=== PATIENT | male | born 1955 | race Caucasian/White ===

== ENCOUNTER 2017-08-17 15:17 | Emergency (ER) | payer MEDICARE, MEDICAID ==
[~2017-08-17] VITALS: Ht 167.6 cm; Wt 75.0 kg
[~2017-08-17 15:17] MED LIST: AMIO200T57 PO; ASPI-41 PO; HYDR-3972 PO; METO25TA6 PO; PHEN32.417 PO; TEG100T PO; ZOC40T PO
[2017-08-17] MEDS ORDERED: HYDR-3965 PO (15:48)
[2017-08-17] MEDS ORDERED: SULF1TAB49 PO (15:48)
[2017-08-17 15:49] VITALS: BP 123/81
== END 2017-08-17 15:54 | disposition home or self-care (01) ==
LOC: ER 15:19
DX: L03.311 Cellulitis of abdominal wall (principal); I10 Essential (primary) hypertension; E78.00 Pure hypercholesterolemia, unspecified; Z79.82 Long term (current) use of aspirin
CPT/HCPCS: 99283

== ENCOUNTER 2020-03-05 08:12 | Emergency (ER) | payer MEDICARE, MEDICAID ==
[~2020-03-05] VITALS: Ht 167.6 cm; Wt 79.5 kg
[~2020-03-05 08:12] MED LIST changes: -AMIO200T57 PO; +AMIO200T61 PO
[2020-03-05 08:13] VITALS: BP 166/86
[2020-03-05] MEDS ORDERED: HYDROcodone/acetaminophen 5mg/325mg tablet PO ONE (09:05)
[2020-03-05] MEDS ORDERED: TRAM50TA2 PO (09:39)
== END 2020-03-05 10:03 | disposition home or self-care (01) ==
LOC: ER 08:12
DX: S20.211A Contusion of right front wall of thorax, initial encounter (principal); E78.00 Pure hypercholesterolemia, unspecified; I10 Essential (primary) hypertension; Z98.890 Other specified postprocedural states; Z79.82 Long term (current) use of aspirin; Z79.899 Other long term (current) drug therapy; W01.198A Fall on same level from slipping, tripping and stumbling with subsequent striking against other object, initial encounter; Y93.89 Activity, other specified; Y92.89 Other specified places as the place of occurrence of the external cause; Y99.8 Other external cause status
CPT/HCPCS: 71100; 99284

== ENCOUNTER 2021-02-14 19:35 | Emergency (ER) | payer MEDICARE, MEDICAID ==
[~2021-02-14] VITALS: Ht 167.6 cm; Wt 77.0 kg
[~2021-02-14 19:35] MED LIST changes: +LOP25T PO; -METO25TA6 PO
[2021-02-14 19:41] VITALS: BP 138/87
== END 2021-02-14 22:24 | disposition home or self-care (01) ==
LOC: ER 19:36
DX: S93.602A Unspecified sprain of left foot, initial encounter (principal); E78.00 Pure hypercholesterolemia, unspecified; I10 Essential (primary) hypertension; Z98.890 Other specified postprocedural states; X50.1XXA Overexertion from prolonged static or awkward postures, initial encounter; Y93.89 Activity, other specified; Y92.89 Other specified places as the place of occurrence of the external cause; Y99.8 Other external cause status
CPT/HCPCS: 73630; 99283

== ENCOUNTER → 2021-04-23 | Outpatient (CLI) | payer MEDICARE, MEDICAID ==
[~2021-04-23] MED LIST changes: +ASPI-1265 PO; +ATOR80TA PO; +CLOP75TA15 PO; +PHEN-588 PO
[2021-04-23 16:50] LABS: BASOPHILS # (AUTO) 0.1 X10'3 (0-0.2); BASOPHILS % (AUTO) 0.9 % (0-1); EOSINOPHILS # (AUTO) 0.1 X10'3 (0-0.9); EOSINOPHILS % (AUTO) 0.8 % (0-6); HEMATOCRIT 40.1 % (42.0-52.0); LYMPHOCYTES # (AUTO) 1.2 X10'3 (1.1-4.8); LYMPHOCYTES % (AUTO) 19.8 % (21-51); MEAN CORPUSCULAR HEMOGLOBIN 33.5 PG (27.0-31.0); MEAN CORPUSCULAR HGB CONC 35.1 g/dL (33.0-36.5); MEAN CORPUSCULAR VOLUME 95.5 FL (78-98); MEAN PLATELET VOLUME 8.6 FL (7.4-10.4); MONOCYTES # (AUTO) 0.7 X10'3 (0-0.9); MONOCYTES % (AUTO) 12.5 % (2-12); PLATELET COUNT 186 X10'3 (140-440); RED CELL DISTRIBUTION WIDTH 13.3 % (11.5-14.5)
[2021-04-23 17:01] LABS: ALBUMIN 3.6 G/DL (3.4-5.0); ANION GAP 9 (8-16); BLOOD UREA NITROGEN 5 MG/DL (7-18); BUN/CREATININE RATIO 8.6 (5.4-32.0); CALCIUM 7.8 MG/DL (8.5-10.1); CHLORIDE 97 MMOL/L (99-107); CREATININE 0.58 MG/DL (0.60-1.10); GLUCOSE 109 MG/DL (70-104); POTASSIUM 3.1 MMOL/L (3.5-5.1); SODIUM 133 MMOL/L (135-145); TOTAL CARBON DIOXIDE 26.7 MMOL/L (24-32); eGFR > 90 ML/MIN
[2021-04-23 17:03] LABS: PARTIAL THROMBOPLASTIN TIME 34 SECONDS (22-32)
== END | disposition home or self-care (01) ==
LOC: LAB 15:33
PROVIDERS: ATTEND Internal Medicine Interventional Cardiology
DX: Z01.810 Encounter for preprocedural cardiovascular examination (principal); R94.31 Abnormal electrocardiogram [ECG] [EKG]; E78.5 Hyperlipidemia, unspecified; I65.23 Occlusion and stenosis of bilateral carotid arteries; R00.1 Bradycardia, unspecified; F17.210 Nicotine dependence, cigarettes, uncomplicated; I25.810 Atherosclerosis of coronary artery bypass graft(s) without angina pectoris; Z95.1 Presence of aortocoronary bypass graft
CPT/HCPCS: 36415; 80048; 85025; 85610; 85730

== ENCOUNTER 2021-04-27 13:47 | Inpatient (IN) | payer MEDICARE, MEDICAID ==
[2021-04-27] VITALS (11 sets, daily range): BP systolic 73–155; BP diastolic 45–84
[~2021-04-27] VITALS: Ht 167.6 cm; Wt 81.3 kg
[~2021-04-27 13:47] MED LIST changes: -ASPI-1265 PO; -ATOR80TA PO; -CLOP75TA15 PO; -PHEN-588 PO
[2021-04-27] MEDS ORDERED: LORazepam 0.5 MG tablet PO PRN (14:25)
[2021-04-27] MEDS ORDERED: normal saline 1,000 ML IV SCH (14:25)
[2021-04-27] MEDS ORDERED: diphenhydrAMINE 25mg capsule PO PRN (14:25)
[2021-04-27] MEDS ORDERED: CLOP75TA15 PO (14:34)
[2021-04-27] MEDS ORDERED: ATOR80TA PO (14:34)
[2021-04-27] MEDS ORDERED: ASPI-1265 PO (14:37)
[2021-04-27] MEDS ORDERED: LIDOcaine 1% (10mg/ml)w/preservative injection 20ml MDV ONE (15:51)
[2021-04-27] MEDS ORDERED: phenylephrine 10mg/ml inj. ONE (15:53)
[2021-04-27] MEDS ORDERED: iohexol 350MG/ML 100ml bottle IV ONE ×2 (16:01→17:19)
[2021-04-27] MEDS ORDERED: DOPamine 400mg/D5W 250ml 250 ML IV ONE (16:05)
[2021-04-27] MEDS ORDERED: atropine 0.1mg/ml 10ml syringe ONE ×2 (16:05→17:19)
[2021-04-27] MEDS ORDERED: heparin 1,000unit/ml 10ml vial 10 ML ONE (16:55)
--- NOTE | 2021-04-27 17:15 | NUR ---
Report given to Jennifer THOMPSON on tele. All questions answered. Patient to be taken from manager laboratory to [id number]
[2021-04-27] MEDS ORDERED: clopidogrel 300mg tablet ONE (17:25)
--- NOTE | 2021-04-27 17:55 | NUR ---
All belongings at bedside in room 3014A.
--- NOTE | 2021-04-27 18:03 | NUR ---
Patient arrived at 1750 vitals stable . 500 NS bolus started per written order for soft BPs vitals on arrival Bp 91/50 HR 59 sats 97% on RA . Orders faxed to pharmacy . Patient oriented to room and call light . at bedside. Groin site CDI, no hematoma, sensation intact, distal pulses strong, cap refill brisk.
[2021-04-27] MEDS ORDERED: HYDROcodone/acetaminophen 5mg/325mg tablet PO PRN (18:15)
[2021-04-27] MEDS ORDERED: normal saline 1000ml 1,000 ML IV SCH (18:15)
[2021-04-27] MEDS ORDERED: DOPamine 400mg/D5W 250ml 250 ML IV SCH ×2 (18:15→19:53)
[2021-04-27] MEDS ORDERED: pseudoephedrine 30mg tablet PO PRN (18:15)
[2021-04-27] MEDS ORDERED: HYDROcodone/acetaminophen 10/325mg tab PO PRN (18:15)
[2021-04-27] MEDS ORDERED: OXAZEpam 15mg capsule PO PRN (18:15)
--- NOTE | 2021-04-27 18:17 | NUR ---
Problems reprioritized. Patient report given, questions answered & plan of care reviewed with Pancho RN . Patient stable at this time. 500 NS bolus running
--- NOTE | 2021-04-27 19:20 | NUR ---
NOTIFED PAGER ID: [phone] MESSAGE: [id number] Rafael Hoffman bp at time of report was systolic 79. Started Dopamin per order at 5mcg/kg/min. Bp syst. is now 163. I have stopped Dop - turned NS down from 250 to 150ml hr. would you like me to do anything more? [email or web address] [id number]
--- NOTE | 2021-04-27 20:05 | NUR ---
recieved new order to decrease dopamine to 3mcg/kg/min and turn iv fluids to TKO.
--- NOTE | 2021-04-27 21:45 | NUR ---
notified MD pts bp systolic 80/57 HR 40/41bpm no new orders MD stated "he doesnt care if his bp is 70"
[2021-04-28 00:45] VITALS: BP 88/43
[2021-04-28 01:45] VITALS: BP 96/46
[2021-04-28 02:45] VITALS: BP 87/46
[2021-04-28 03:45] VITALS: BP 110/48
--- NOTE | 2021-04-28 06:26 | NUR ---
Problems reprioritized. Patient report given, questions answered & plan of care reviewed with Nicki THOMPSON.
--- NOTE | 2021-04-28 06:32 | NUR ---
Patient in room PCU 3014. I have received report from DONNA Dickinson and had the opportunity to ask questions and assume patient care.
[2021-04-28 07:00] VITALS: BP 100/71
[2021-04-28] MEDS ORDERED: PHEN-588 PO (07:06)
[2021-04-28] MEDS ORDERED: clopidogrel 75mg tablet PO SCH (08:00)
[2021-04-28] MEDS ORDERED: aspirin 81mg tab.chew PO SCH (08:00)
[2021-04-28] MEDS ORDERED: carBAMazepine 100mg chewable tablet PO SCH (08:00)
[2021-04-28] MEDS ORDERED: atorvastatin 20mg tablet PO SCH ×2 (08:00→20:00)
[2021-04-28 11:00] VITALS: BP 102/68
--- NOTE | 2021-04-28 11:35 | NUR ---
Pt stable for discharge per md orders. All instructions were given, questions answered appropriately. All belongings were collected and sent with pt. Instructed pt to take all medications as directed and follow up with Dr Santos within one week. PIV discontinued, cannula intact. Tele discontinued, telephone information clerk notified. Pt ambulated self with standby assist to lobby with by side.
[2021-04-28] MEDS ORDERED: PHENOBARBITAL PO SCH (21:00)
[2021-04-28] MEDS ORDERED: PHENOBARBITAL 100 MG PO SCH (21:00)
== END 2021-04-28 11:35 | disposition home or self-care (01) | DRG 36 ==
LOC: SSTAY O 13:47 → PCU 3S 13:48 → SSTAY O 04-28 11:35
PROVIDERS: ADMIT Internal Medicine Interventional Cardiology; ATTEND Internal Medicine Interventional Cardiology
PROC: B3131ZZ Fluoroscopy of Right Common Carotid Artery using Low Osmolar Contrast (ICD-10-PCS; principal; 2021-04-27)
PROC: 037K3DZ Dilation of Right Internal Carotid Artery with Intraluminal Device, Percutaneous Approach (ICD-10-PCS; 2021-04-27)
PROC: B3161ZZ Fluoroscopy of Right Internal Carotid Artery using Low Osmolar Contrast (ICD-10-PCS; 2021-04-27)
PROC: B3191ZZ Fluoroscopy of Right External Carotid Artery using Low Osmolar Contrast (ICD-10-PCS; 2021-04-27)
PROC: B3101ZZ Fluoroscopy of Thoracic Aorta using Low Osmolar Contrast (ICD-10-PCS; 2021-04-27)
DX: I65.21 Occlusion and stenosis of right carotid artery (principal); E78.5 Hyperlipidemia, unspecified; I25.10 Atherosclerotic heart disease of native coronary artery without angina pectoris; G40.909 Epilepsy, unspecified, not intractable, without status epilepticus; G80.9 Cerebral palsy, unspecified; R29.810 Facial weakness; R00.1 Bradycardia, unspecified; Z79.899 Other long term (current) drug therapy; Z95.1 Presence of aortocoronary bypass graft
CPT/HCPCS: 37215; 93005; A4620; A6258; C1725; C1760; C1769; C1876; C1884; C1887; C1894; G0378; J0461; J1265; J1644; J2001; J2370; J7030; Q0163; Q9967

== ENCOUNTER 2023-06-07 12:34 | Emergency (ER) | payer BC, MEDICAID ==
[~2023-06-07] VITALS: Ht 167.6 cm; Wt 90.0 kg
[~2023-06-07 12:34] MED LIST changes: -AMIO200T61 PO; +ASPI-1265 PO; -ASPI-41 PO; +ATOR80TA PO; +CLOP75TA15 PO; -HYDR-3972 PO; -LOP25T PO; +PHEN-588 PO; -PHEN32.417 PO; -ZOC40T PO
[2023-06-07 12:55] VITALS: BP 162/82; PULSE 74; RESP 16; O2SAT 98
[2023-06-07] MEDS ORDERED: LIDOcaine 1% W/epiNEPHrine 1:100,000 20ml vial IJ ONE (13:35)
[2023-06-07] MEDS ORDERED: LIDOCAINE 1%/EPI 1:100,000 inj. 10 ML multi-dose vial IJ ONE (13:55)
[2023-06-07 15:51] VITALS: TEMP 98.2
--- NOTE | 2023-06-07 17:54 | NUR ---
pt seen and treated by dr plummer for left hand pain, pt splinted and treated stable upon dc pt to f/u with dr hauser
--- NOTE | 2023-06-07 18:06 | NUR ---
NUCLEAR MEDICINE TECH ASSESSMENT REVIEWED BY FAVIOLA RN
== END 2023-06-07 18:07 | disposition home or self-care (01) ==
LOC: ER 12:35
DX: S52.502A Unspecified fracture of the lower end of left radius, initial encounter for closed fracture (principal); E78.00 Pure hypercholesterolemia, unspecified; I10 Essential (primary) hypertension; Z79.82 Long term (current) use of aspirin; Z79.899 Other long term (current) drug therapy; W01.0XXA Fall on same level from slipping, tripping and stumbling without subsequent striking against object, initial encounter; Y93.89 Activity, other specified; Y92.89 Other specified places as the place of occurrence of the external cause; Y99.8 Other external cause status
CPT/HCPCS: 25605; 73100; 99284; A4565; A6446; A6449

== ENCOUNTER 2023-07-21 19:41 | Emergency (ER) | payer BC, MEDICAID ==
[~2023-07-21] VITALS: Ht 167.6 cm; Wt 80.9 kg
[2023-07-21 20:22] VITALS: O2SAT 97
[2023-07-21 20:42] LABS: BASOPHILS # (AUTO) 0.1 X10'3 (0-0.2); BASOPHILS % (AUTO) 1.5 % (0-1); EOSINOPHILS # (AUTO) 0.2 X10'3 (0-0.9); EOSINOPHILS % (AUTO) 3.5 % (0-6); HEMATOCRIT 34.1 % (42.0-52.0); HEMOGLOBIN 10.7 g/dl (14.0-17.9); LYMPHOCYTES # (AUTO) 1.8 X10'3 (1.1-4.8); LYMPHOCYTES % (AUTO) 33.1 % (21-51); MEAN CORPUSCULAR HGB CONC 31.5 g/dL (33.0-36.5); MEAN CORPUSCULAR VOLUME 79.4 FL (78-98); MEAN PLATELET VOLUME 7.7 FL (7.4-10.4); MONOCYTES # (AUTO) 0.6 X10'3 (0-0.9); MONOCYTES % (AUTO) 11.1 % (2-12); NEUTROPHILS # (AUTO) 2.7 X10'3 (1.8-7.7); NEUTROPHILS % (AUTO) 50.8 % (42-75); PLATELET COUNT 240 X10'3 (140-440); RED CELL DISTRIBUTION WIDTH 19.6 % (11.5-14.5); WHITE BLOOD COUNT 5.3 X10'3 (4.5-11.0)
[2023-07-21 20:50] LABS: APTT 30 SECONDS (22-32); PROTHROMBIN TIME 10.4 SECONDS (9.0-12.0)
[2023-07-21 20:54] LABS: ALANINE AMINOTRANSFERASE 39 U/L (12-78); ALBUMIN 3.4 G/DL (3.4-5.0); ALBUMIN/GLOBULIN RATIO 0.9 (1.1-1.5); ALKALINE PHOSPHATASE 125 IU/L (46-116); ANION GAP 7 (8-16); ASPARTATE AMINO TRANSFERASE 35 U/L (10-37); BILIRUBIN,TOTAL 0.2 MG/DL (0.1-1.0); BLOOD UREA NITROGEN 5 MG/DL (7-18); CALCIUM 8.3 MG/DL (8.5-10.1); CHLORIDE 92 MMOL/L (99-107); CREATININE 0.71 MG/DL (0.60-1.10); GLUCOSE 91 MG/DL (70-104); POTASSIUM 3.6 MMOL/L (3.5-5.1); SODIUM 125 MMOL/L (135-145); TOTAL CARBON DIOXIDE 26.2 MMOL/L (24-32); TOTAL PROTEIN 7.3 G/DL (6.4-8.2); eCRCL 92 ML/MIN; eGFR > 90 ML/MIN
[2023-07-21 20:57] LABS: ETHANOL 117 MG/DL (<10)
[2023-07-21 21:45] LABS: ACANTHOCYTES FEW; ANISOCYTOSIS 2+; ELLIPTOCYTES FEW; HYPOCHROMASIA 1+; MICROCYTOSIS 1+; PLATELET ESTIMATE NORMAL
[2023-07-21 22:00] VITALS: BP 151/81; PULSE 67; RESP 18; TEMP 97.5
--- NOTE | 2023-07-21 23:16 | NUR ---
I have reviewed assessment by WINDOWS SOFTWARE DEVELOPER, assessment is incomplete, patient has since discharged. However, I agree with assessment details that are noted.
== END 2023-07-21 23:19 | disposition home or self-care (01) ==
LOC: ER 19:42
DX: F10.129 Alcohol abuse with intoxication, unspecified (principal); Y90.9 Presence of alcohol in blood, level not specified
CPT/HCPCS: 36415; 70450; 71045; 80053; 80320; 82948; 84484; 85008; 85025; 85610; 85730; 93005; 99285

== ENCOUNTER 2023-09-27 10:54 | Emergency (ER) | payer BC, MEDICAID ==
[~2023-09-27] VITALS: Ht 167.6 cm; Wt 81.4 kg
[2023-09-27] MEDS ORDERED: iohexol 350MG/ML 100ml bottle IV ONE (13:10)
[2023-09-27] MEDS ORDERED: HYDR-3965 PO (17:36)
[2023-09-27 17:55] LABS: BASOPHILS # (AUTO) 0.1 X10'3 (0-0.2); BASOPHILS % (AUTO) 1.6 % (0-1); EOSINOPHILS # (AUTO) 0.2 X10'3 (0-0.9); EOSINOPHILS % (AUTO) 4.9 % (0-6); HEMATOCRIT 34.8 % (42.0-52.0); HEMOGLOBIN 11.1 g/dl (14.0-17.9); LYMPHOCYTES % (AUTO) 20.7 % (21-51); MEAN CORPUSCULAR HEMOGLOBIN 25.9 PG (27.0-31.0); MEAN CORPUSCULAR HGB CONC 31.9 g/dL (33.0-36.5); MEAN CORPUSCULAR VOLUME 81.3 FL (78-98); MEAN PLATELET VOLUME 8.2 FL (7.4-10.4); MONOCYTES # (AUTO) 0.8 X10'3 (0-0.9); MONOCYTES % (AUTO) 16.6 % (2-12); NEUTROPHILS # (AUTO) 2.7 X10'3 (1.8-7.7); NEUTROPHILS % (AUTO) 56.2 % (42-75); PLATELET COUNT 228 X10'3 (140-440); RED BLOOD COUNT 4.28 X10'6 (4.70-6.10); RED CELL DISTRIBUTION WIDTH 18.7 % (11.5-14.5); WHITE BLOOD COUNT 4.8 X10'3 (4.5-11.0)
[2023-09-27 17:57] LABS: APTT 29 SECONDS (22-32); PROTHROMBIN TIME 10.8 SECONDS (9.0-12.0)
[2023-09-27 17:59] LABS: ALBUMIN 3.8 G/DL (3.4-5.0); ANION GAP 5 (8-16); BLOOD UREA NITROGEN 5 MG/DL (7-18); BUN/CREATININE RATIO 10.6 (10.0-20.0); CALCIUM 8.5 MG/DL (8.5-10.1); CHLORIDE 95 MMOL/L (99-107); CREATININE 0.47 MG/DL (0.60-1.10); GLUCOSE 92 MG/DL (70-104); POTASSIUM 3.5 MMOL/L (3.5-5.1); SODIUM 129 MMOL/L (135-145); TOTAL CARBON DIOXIDE 29.2 MMOL/L (24-32); eCRCL 140 ML/MIN; eGFR > 90 ML/MIN
[2023-09-27 18:04] VITALS: BP 149/97; PULSE 63; RESP 18; TEMP 98.2; O2SAT 97
[2023-09-27 18:51] LABS: ANISOCYTOSIS 2+; ELLIPTOCYTES FEW; HYPOCHROMASIA 1+; PLATELET ESTIMATE NORMAL
[2023-09-27 18:52] LABS: BURR CELLS FEW
== END 2023-09-27 18:09 | disposition home or self-care (01) ==
LOC: ER 10:55
DX: S12.000A Unspecified displaced fracture of first cervical vertebra, initial encounter for closed fracture (principal); E78.00 Pure hypercholesterolemia, unspecified; I10 Essential (primary) hypertension; Z79.82 Long term (current) use of aspirin; Z79.899 Other long term (current) drug therapy; W19.XXXA Unspecified fall, initial encounter; Y93.89 Activity, other specified; Y92.89 Other specified places as the place of occurrence of the external cause; Y99.8 Other external cause status
CPT/HCPCS: 36415; 70450; 70496; 70498; 71045; 72125; 80048; 85008; 85025; 85610; 85730; 93005; 99291; 99292; J3490; L0172; Q9967; 99285

== ENCOUNTER 2025-02-19 10:54 | Inpatient (IN) | payer BC, MEDICAID ==
[~2025-02-19] VITALS: Ht 165.1 cm; Wt 62.0 kg
[~2025-02-19 10:54] MED LIST changes: +ATOR-429 PO; -ATOR80TA PO
--- NOTE | 2025-02-19 11:29 | RADIOLOGY REPORT ---
CLINICAL INDICATION: LT.HIP PAIN AFTER FALL TECHNIQUE: 1 radiographic views of the pelvis and 2 views of the left hip were obtained. Comparison: None FINDINGS/IMPRESSION: There is no evidence of acute fracture or dislocation. The visualized joint space is well maintained. Intramedullary screws are visualized in the left hip. The alignment is anatomical. There is no radiopaque foreign body.
--- NOTE | 2025-02-19 12:28 | Physician Documentation ---
History of Present Illness ~ Chief Complaint: Mechanical Fall Stated Complaint: FALL Time Seen by MD: 12:17 [facility] Mode of Arrival: EMS HPI 69-year-old male presenting with left hip pain after he had a fall yesterday. Patient states that he his left foot slipped and he fell landing on his left hip. Since that time he has had pain in the area and can not walk. Patient has a history of a left hip fracture with ORIF done 13 years ago. Patient also complains of some pain in his lower back. Denies any dizziness or loss of consciousness prior to the fall. Denies any chest pain, shortness of breath or any other associated symptoms. Tetanus within 5 Years?: No Medication Reconciliation Allergies: Coded Allergies: No Known Allergies (Unverified , 02/19/25) Scheduled Aspirin (Aspirin), 1 TAB PO DAILY, (Reported) Atorvastatin Calcium* (Lipitor*), 1 TABLET PO HS, (Reported) Carbamazepine* (Tegretol*), 200 MG PO BID, (Reported) Ferrous Sulfate (Iron), 1 TAB PO Q12H, (Reported) Lisinopril (Lisinopril), 1 TAB PO DAILY, (Reported) Mecobalamin (B12 Active), 1 TAB PO DAILY, (Reported) Omeprazole (Prilosec), 1 CAP PO DAILY, (Reported) Phenobarbital (Phenobarbital), 1 TAB PO HS, (Reported) Discontinued Medications Clopidogrel Bisulfate (Plavix), 1 TAB PO DAILY, (Reported) Discontinued Reason: patient no longer taking Past Medical History Past Medical History: *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 CONST: Well developed and well nourished. In no acute distress HENT: Head Atraumatic EYES: Pupils are equal, round and reactive to light. Normal conjunctiva NECK: Normal range of motion. Supple. CARDIO: Normal rate and regular rhythm. No murmurs, rubs, or gallops. S1, S2. PULM/CHEST: No respiratory distress. Lungs clear to auscultation. No wheeze ABD: Soft and nontender. Nondistended. Bowel sounds normal. No guarding. : Exam deferred MSK: No edema. The left lower extremity is externally rotated. Patient has not tenderness to palpation over the anterior hip. There is very minor pain with range of motion such as hip flexion and extension and rotation NEURO: Alert and oriented to person, place and time. Moving all extremities SKIN: Warm and dry. PSYCH: Normal mood and affect. Good eye contact. Progress Results/Orders Results/Orders Orders - ELOY MESA MD Hip Unilateral 2 Views (02/19/25 10:55) Ct Pelvis (02/19/25 12:30) Ct Lumbar Spine (02/19/25 12:30) Cbc/Diff (02/19/25 12:24) Man Diff (02/19/25 12:57) Pathology Review (02/19/25 12:57) Page Hospitalist (02/19/25 14:30) Fill Out Med Reconciliation (02/19/25 14:30) Completed Orders - ELOY MESA MD Hip Unilateral 2 Views (02/19/25 10:55) Ct Pelvis (02/19/25 12:30) Ct Lumbar Spine (02/19/25 12:30) Pt Inr (02/19/25 12:24) PTT (02/19/25 12:24) Electrocardiogram (02/19/25 12:24) BMP (02/19/25 12:24) Hs Troponin I W Calculations (02/19/25 12:24) Vital Signs 02/19/25 02/19/25 02/19/25 11:00 12:56 14:20 Temp 98.0 Pulse 62 60 64 Resp 16 16 16 B/P (MAP) 125/67 102/64 (77) 110/65 (80) Pulse Ox 97 99 98 O2 Flow Rate 0 0 0 Laboratory Tests Test 02/19/25 12:57 White Blood Count 1.3 L Red Blood Count 2.43 L Hemoglobin 8.2 L Hematocrit 24.2 L Mean Corpuscular Volume 99.8 H Mean Corpuscular Hemoglobin 33.9 H Mean Corpuscular Hemoglobin Concent 33.9 Red Cell Distribution Width 16.6 H Platelet Count 113 L Mean Platelet Volume 7.5 Neutrophils (%) (Auto) 54.0 Lymphocytes (%) (Auto) 30.3 Monocytes (%) (Auto) 12.1 H Eosinophils (%) (Auto) 1.6 Basophils (%) (Auto) 2.0 H Neutrophils # (Auto) 0.7 L Lymphocytes # (Auto) 0.4 L Monocytes # (Auto) 0.2 Eosinophils # (Auto) 0.0 Basophils # (Auto) 0.0 CBC Comment Differential Total Cells Counted 100 Neutrophils % (Manual) 54.0 Lymphocytes % (Manual) 34.0 Monocytes % (Manual) 11.0 Eosinophils % (Manual) 1.0 Platelet Estimate Decreased Red Blood Cell Morphology Perf Polychromasia Few Basophilic Stippling Anisocytosis 1+ Macrocytosis 1+ Prothrombin Time 11.1 INR International Normalized Ratio 1.1 Activated Partial Thromboplast Time 31 Coagulation Comments Sodium Level 123 L Potassium Level 3.7 Chloride Level 90 L Carbon Dioxide Level 28.7 Anion Gap 4 L Blood Urea Nitrogen 7 Creatinine 0.43 L Estimated GFR/1.73 m2 > 90 BUN/Creatinine Ratio 16.3 Glucose Level 86 Calcium Level 8.1 L Troponin I High Sensitivity 8 Albumin 2.7 L Chemistry Comments EKG/XRAY/CT/US/VASC/MRI Bone/Soft Tissue X-Ray (Ext.) : Additional Comment CLINICAL INDICATION: LT.HIP PAIN AFTER FALL TECHNIQUE: 1 radiographic views of the pelvis and 2 views of the left hip were obtained. Comparison: None FINDINGS/IMPRESSION: There is no evidence of acute fracture or dislocation. The visualized joint space is well maintained. Intramedullary screws are visualized in the left hip. The alignment is anatomical. There is no radiopaque foreign body. : Impression EXAM: CT CT PELVIS HISTORY: Left hip pain- assess for occilt fx COMPARISON: Radiographs from earlier same day. TECHNIQUE: Noncontrast axial CT images of the pelvis were performed. Sagittal and coronal reformatted images were obtained. This CT exam was performed using one or more of the following dose reduction techniques: Automated exposure control, adjustment of the mA and/or kV according to patient size, or use of iterative reconstruction technique. Radiation Dose Information: CT Dose: CTDI volume is 6.5 mGy. Dose-length product is 243.54 mGy*cm. FINDINGS/IMPRESSION: 1. Mildly displaced acute fracture of the left inferior pubic ramus (image 79, series 2). 2. Possible old healed fracture of S5, best characterized on the sagittal series (image 98, series 602). 3. Postoperative changes of left femoral neck percutaneous pinning without evidence of hardware failure or complication. 4. Mild osteoarthritis of the bilateral hips. 5. Degenerative changes of the bilateral sacroiliac joints with anteriorly projecting marginal osteophytes and sclerosis, greater on the right. 6. Lower lumbar degenerative disc disease with significant neural foraminal stenosis at L4-L5 on the left and L5-S1 on the right, These findings may correspond to lower extremity radicular symptoms in the left L4 and right L5 nerve root distributions. 7. Fecal retention in the colon which may indicate constipation. There are descending and sigmoid colon diverticula without evidence of acute diverticulitis. The colon is not fully imaged here. 8. Small fatty right inguinal indirect hernia. 9. Extensive atherosclerotic vascular disease with high-grade stenosis of the right common femoral artery just above the bifurcation (image 43, series 4; image 38, series 601). Recommend cardiology and/or vascular surgery co nsultation if not already obtained. : CT CT LUMBAR SPINE HISTORY: Left hip pain- assess for occilt fx COMPARISON: None TECHNIQUE: Noncontrast axial CT images of the lumbar spine were performed. Sagittal and coronal reformatted images were obtained. This CT exam was performed using one or more of the following dose reduction techniques: Automated exposure control, adjustment of the mA and/or kv according to patient size, or the use of iterative reconstruction techniques. Radiation Dose: CT Dose: CTDI volume is 19.94 mGy. Dose-length product is 632.9 mGy*cm FINDINGS: No fracture or listhesis are identified in the lumbar spine. There is moderate to severe lumbar degenerative disc disease and mild facet arthropathy, greater in the lower levels. There is significant neural foraminal stenosis at L3-L4 on the left, L4-L5 on the left, L5-S1 on the right. No high-grade spinal canal stenosis at any level in the lumbar spine. There are extensive atherosclerotic calcifications of the abdominal aorta and major branches. The trolley car operator film demonstrates fecal retention throughout the colon. IMPRESSION: 1. No fracture of the lumbar spine. 2. Degenerative disc disease and facet arthropathy with significant neural foraminal stenosis at L3-L4 on the left, L4-L5 on the left, and L5-S1 on the right. These findings may correspond to lower extremity radicular symptoms in the left L3, left L4, and right L5 nerve root distributions. 3. Extensive atherosclerotic vascular disease. Recommend nonemergent cardiology and/or vascular surgery consultation if not already obtained. 4. Fecal retention in the colon suggestive of constipation. Medical Decision Making Additional Comment 69-year-old male who presents with left hip and lower back pain after a mechanical fall. X-rays indicate no hip fracture however he did sustain a pubic ramus fracture that was seen on CT of the pelvis. Additionally the patient has pancytopenic with a hemoglobin of 8.2, WBC count of 1.3 and low platelet 133 jeffrey ngst other abnormalities. Patient also found to be significantly hyponatremic with a sodium of 123. It appears that he has atherosclerosis of his peripheral arteries as well. He has extensive lumbar spondylosis causing chronic lower back pain. Given the patient can not ambulate and he has new found pancytopenia as well as newly found hyponatremia, I believe it is prudent to have him admitted for further treatment and evaluation. Departure Disposition: ADMITTED INPATIENT Admitted to Inpatient Unit: to hospitalist Admission Level of Care: Med/Surg Impression: Primary Impression: Pancytopenia Additional Impressions: Pubic ramus fracture Peripheral vascular disease Hyponatremia Condition: Guarded Referrals: NO PRIMARY CARE PROVIDER (PCP) ELOY MESA MD Feb 19, 2025 12:28
--- NOTE | 2025-02-19 13:03 | ELECTROCARDIOGRAPH REPORT ---
[facility] Test Date: 2025-02-19 Test Time: 13:01:42 Pat Name: VALENTINA CONNER Department: [facility] Patient ID: [id number] Room: [facility] Gender: M Altitude Chamber Technician: : 1955 Requested By: ELOY MESA Order Number: [id number] Reading MD: Dr. Charlie Castano Measurements Intervals [place] Rate: 58 P: 17 OR: 182 QRS: -60 QRSD: 112 T: 47 QT: 443 QTc: 436 Interpretive Statements Sinus bradycardia Probable left atrial enlargement Incomplete right bundle branch block Inferior infarct, old Electronically Signed On 02-22-2025 18:35:[address] Charlie Castano Please click the below link to view image of tracing.
[2025-02-19 13:09] LABS: EOSINOPHILS % (AUTO) 1.6 % (0-6); HEMATOCRIT 24.2 % (42.0-52.0); HEMOGLOBIN 8.2 g/dl (14.0-17.9); LYMPHOCYTES # (AUTO) 0.4 X10'3 (1.1-4.8); LYMPHOCYTES % (AUTO) 30.3 % (21-51); MEAN CORPUSCULAR HEMOGLOBIN 33.9 PG (27.0-31.0); MEAN CORPUSCULAR HGB CONC 33.9 g/dL (33.0-36.5); MEAN CORPUSCULAR VOLUME 99.8 FL (78-98); MEAN PLATELET VOLUME 7.5 FL (7.4-10.4); MONOCYTES # (AUTO) 0.2 X10'3 (0-0.9); MONOCYTES % (AUTO) 12.1 % (2-12); NEUTROPHILS # (AUTO) 0.7 X10'3 (1.8-7.7); PLATELET COUNT 113 X10'3 (140-440); RED BLOOD COUNT 2.43 X10'6 (4.70-6.10); RED CELL DISTRIBUTION WIDTH 16.6 % (11.5-14.5); WHITE BLOOD COUNT 1.3 X10'3 (4.5-11.0)
[2025-02-19 13:16] LABS: ALBUMIN 2.7 G/DL (3.4-5.0); ANION GAP 4 (8-16); BLOOD UREA NITROGEN 7 MG/DL (7-18); BUN/CREATININE RATIO 16.3 (10.0-20.0); CALCIUM 8.1 MG/DL (8.5-10.1); CHLORIDE 90 MMOL/L (99-107); CREATININE 0.43 MG/DL (0.60-1.10); GLUCOSE 86 MG/DL (70-104); POTASSIUM 3.7 MMOL/L (3.5-5.1); SODIUM 123 MMOL/L (135-145); TOTAL CARBON DIOXIDE 28.7 MMOL/L (24-32); eCRCL 145 ML/MIN; eGFR > 90 ML/MIN
[2025-02-19 13:31] LABS: APTT 31 SECONDS (22-32); INR 1.1 INR; PROTHROMBIN TIME 11.1 SECONDS (9.0-12.0)
--- NOTE | 2025-02-19 13:38 | RADIOLOGY REPORT ---
EXAM: CT CT PELVIS HISTORY: Left hip pain- assess for occilt fx COMPARISON: Radiographs from earlier same day. TECHNIQUE: Noncontrast axial CT images of the pelvis were performed. Sagittal and coronal reformatted images were obtained. This CT exam was performed using one or more of the following dose reduction techniques: Automated ex posure control, adjustment of the mA and/or kV according to patient size, or use of iterative reconst ruction technique. Radiation Dose Information: CT Dose: CTDI volume is 6.5 mGy. Dose-length product i s 243.54 mGy*cm. FINDINGS/IMPRESSION: 1. Mildly displaced acute fracture of the left inferior pubic ramus (image 79, series 2). 2. Possible old healed fracture of S5, best characterized on the sagittal series (image 98, series 60 2). 3. Postoperative changes of left femoral neck percutaneous pinning without evidence of hardware failu re or complication. 4. Mild osteoarthritis of the bilateral hips. 5. Degenerative changes of the bilateral sacroiliac joints with anteriorly projecting marginal osteop hytes and sclerosis, greater on the right. 6. Lower lumbar degenerative disc disease with significant neural foraminal stenosis at L4-L5 on the left and L5-S1 on the right, These findings may correspond to lower extremity radicular symptoms in the left L4 and right L5 nerve root distributions. 7. Fecal retention in the colon which may indicate constipation. There are descending and sigmoid co alber diverticula without evidence of acute diverticulitis. The colon is not fully imaged here. 8. Small fatty right inguinal indirect hernia. 9. Extensive atherosclerotic vascular disease with high-grade stenosis of the right common femoral ar brett just above the bifurcation (image 43, series 4; image 38, series 601). Recommend cardiology and /or vascular surgery consultation if not already obtained.
[2025-02-19 13:40] LABS: TOTAL CELLS COUNTED 100
[2025-02-19 13:41] LABS: ANISOCYTOSIS 1+; PLATELET ESTIMATE DECREASED
[2025-02-19 13:42] LABS: POLYCHROMASIA FEW
--- NOTE | 2025-02-19 13:47 | RADIOLOGY REPORT ---
EXAM: CT CT LUMBAR SPINE HISTORY: Left hip pain- assess for occilt fx COMPARISON: None TECHNIQUE: Noncontrast axial CT images of the lumbar spine were performed. Sagittal and coronal refor matted images were obtained. This CT exam was performed using one or more of the following dose reduc tion techniques: Automated exposure control, adjustment of the mA and/or kv according to patient size , or the use of iterative reconstruction techniques. Radiation Dose: CT Dose: CTDI volume is 19.94 mGy. Dose-length product is 632.9 mGy*cm FINDINGS: No fracture or listhesis are identified in the lumbar spine. There is moderate to severe lumbar degen erative disc disease and mild facet arthropathy, greater in the lower levels. There is significant ne ural foraminal stenosis at L3-L4 on the left, L4-L5 on the left, L5-S1 on the right. No high-grade sp inal canal stenosis at any level in the lumbar spine. There are extensive atherosclerotic calcificati ons of the abdominal aorta and major branches. The cinema operator film demonstrates fecal retention throughout the colon. IMPRESSION: 1. No fracture of the lumbar spine. 2. Degenerative disc disease and facet arthropathy with significant neural foraminal stenosis at L3-L 4 on the left, L4-L5 on the left, and L5-S1 on the right. These findings may correspond to lower ext remity radicular symptoms in the left L3, left L4, and right L5 nerve root distributions. 3. Extensive atherosclerotic vascular disease. Recommend nonemergent cardiology and/or vascular surge ry consultation if not already obtained. 4. Fecal retention in the colon suggestive of constipation.
[2025-02-19] MEDS ORDERED: OMEP40CA21 PO (14:38)
[2025-02-19] MEDS ORDERED: FERR-119 PO (14:38)
[2025-02-19] MEDS ORDERED: MECO10005 PO (14:38)
[2025-02-19] MEDS ORDERED: LISI20TA28 PO (14:38)
[2025-02-19] MEDS ORDERED: potassium Cl 40MEQ/1/2NS 520ml 520 ML IV PRN (15:20)
[2025-02-19] MEDS ORDERED: ondansetron/PF 4mg/2ml inj IV PRN (15:20)
[2025-02-19] MEDS ORDERED: potassium Cl 20 mEq SR tablet PO PRN (15:20)
[2025-02-19] MEDS ORDERED: magnesium Cl slow-release 64mg tablet PO PRN (15:20)
[2025-02-19] MEDS ORDERED: magnesium sulf-water 4G/100mL 100 ML IV PRN (15:20)
[2025-02-19] MEDS ORDERED: mag hydrox/Alum hydrox/simeth 30ml oral suspension PO PRN (15:20)
[2025-02-19] MEDS ORDERED: morphine 2 MG/ML inj. syringe IV PRN (15:20)
[2025-02-19] MEDS ORDERED: acetaminophen 325mg tablet PO PRN ×2 (15:20)
[2025-02-19] MEDS ORDERED: magnesium sulf-water 2g/50mL 50 ML IV PRN (15:20)
[2025-02-19] MEDS ORDERED: albuterol 2.5 MG/3 ML nebule NEB PRN (15:25)
[2025-02-19] MEDS: normal saline 1000ml 1,000 ML IV SCH (15:27)
--- NOTE | 2025-02-19 15:42 | HISTORY AND PHYSICAL-Residence ---
History & Physical Providers to CC Resident Creating Document: JENIFER OROSCO CHAVO ~ History of Present Illness Primary Medical Doctor: DOMINIC KELLEY Reason for Admit\Complaint: MECHANICAL FALL, PELVIS FRACTURE History of Present Illness 69-year-old male with history of cerebral palsy, esophageal and liver cancer on chemotherapy, CAD status post CABG x5 2016, epilepsy, hypertension, presented to the ED after a mechanical fall. Yesterday he slipped on water and fell on his left side and hurt his hip. Did not lose consciousness or hit his head to the floor. Was complaining of severe pain earlier this morning 06/07, currently pain-free. Denies significant chest pains, diaphoresis, fevers/chills, nasal congestion, expectoration, palpitations. Smokes around a pack of cigarettes a day, extensive smoking history. Drinks alcohol once a week. No recreational drugs. Normally is ambulatory, was having difficulty walking since the fall yesterday. Lives with his . Discussed advanced care directives and wishes to be a full code. Allergies: Coded Allergies: No Known Allergies (Unverified , 02/19/25) Home Medications Home Medications Active Reported B12 Active (Mecobalamin) 1,000 Mcg Tab.chew 1 Tab PO DAILY 30 Days Iron (Ferrous Sulfate) 325 Mg (65 Mg Iron) Tablet 1 Tab PO Q12H 30 Days Prilosec (Omeprazole) 40 Mg Capsule 1 Cap PO DAILY 30 Days Lisinopril 20 Mg Tablet 1 Tab PO DAILY 30 Days Phenobarbital 100 Mg Tablet 1 Tab PO HS Aspirin 81 Mg Tab.chew 1 Tab PO DAILY 30 Days Lipitor* (Atorvastatin Calcium) 80 Mg Tablet 1 Tablet PO HS Tegretol* (Carbamazepine) 100 Mg Tab.chew 200 Mg PO BID Past Medical History Past Medical History Hypertension CAD CABG x5 2016 Cerebral palsy Epilepsy Esophageal and liver cancer on chemotherapy Past Surgical History Surgical History Comment CABG x5 2016 S/p stenting Left hip fracture status post ORIF 13 years ago Past Social History Smoking: Non-Smoker Alcohol Use: None Drug Use: None Lives with: Spouse Lives In: Home Occupation: retired ROS All Other Systems: Reviewed and Negative ROS Reviewed in full. All negative except for pertinent positive HPI. Exam Vitals: Vital Signs Date Time Temp Pulse Resp B/P (MAP) Pulse Ox O2 Delivery O2 Flow Rate FiO2 02/19/25 14:20 64 16 110/65 (80) 98 0 02/19/25 11:00 98.0 General: General: Awake and Alert, no acute distress. HEENT: Conjunctiva pink, Sclera clear, Mucus Membranes moist. Neck: Supple without masses and tenderness. Resp: Unlabored. Bilateral rhonchi Heart: Regular rhythm, normal S1 and S2, no rub, murmur or gallop. Abdomen: Soft and non tender no organomegaly. Normal bowel sounds x4 quadrant normoactive. No guarding or rigidity. Extremities: Left upper extremity internally rotated and flexed wrist.. Left lower extremity is externally rotated. Restricted range of motion in the left extremity. No edema or swelling. Diminished peripheral pulses. STRAIGHT CUTTER: No gross motor or sensory abnormalities. Skin: Warm and Dry. Diagnostic Data Last Recorded Lab Results: 02/19/25 1257 02/19/25 1257 Diagnostic Data: Laboratory Tests Test 02/19/25 12:57 Prothrombin Time 11.1 SECONDS (9.0-12.0) INR International Normalized Ratio 1.1 INR Activated Partial Thromboplast Time 31 SECONDS (22-32) Coagulation Comments Advance Care Planning Advanced Care plannin - 30 Minutes Additional Plan 69-year-old male with history of cerebral palsy, esophageal and liver cancer on chemotherapy, CAD status post CABG x5 2016, epilepsy, hypertension, presented to the ED after a mechanical fall. Mechanical fall Mildly displaced acute fracture of the left inferior pubic ramus Chronic lumbar degenerative disc disease and neural stenosis, no neurologic deficits noted at this time Tripped on water and fell at home Pelvis CT: Fracture of the inferior pubic ramus. Hip x-ray no acute fracture or dislocation ED physician had contacted orthopedics Dr. 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 Epilepsy continue home medications carbamazepine and phenobarbital History of cerebral palsy Extensive tobacco use, nicotine patch Awaiting med rec Code Status: Full code DVT prophylaxis: Aspirin Analgesia/sedation: [place]/morphine Line/tube: PIV GI prophylaxis: Protonix Nutrition: Regular diet Prognosis: Guarded Disposition: Continue medical management. Jenifer Orosco MD. IM Resident PGY-2 Date of Service: Feb 19, 2025 Billing Provider: RENÉ CAPPS MD Common Visit Codes: 44900-[id number] INP/OBS CARE (HIGH) Secondary Visit Codes: 06922-[id number] CARE PLAN 30 MINUTES JENIFER OROSCO, CHAVO Feb 19, 2025 15:42 RENÉ CAPPS MD Feb 20, 2025 21:23
[2025-02-19] MEDS: nicotine 21mg patch - 24 hr TD SCH (15:45)
[2025-02-19] MEDS ORDERED: PHEN32.46 PO (15:51)
[2025-02-19 15:58] VITALS: PULSE 65; RESP 18; O2SAT 93
[2025-02-19] MEDS: ipratropium/albuterol 3ml nebule NEB SCH (16:00)
[2025-02-19 16:04] VITALS: PULSE 68; RESP 19
[2025-02-19 16:15] LABS: CARBAMAZEPINE (TEGRETOL) 4.7 UG/ML (4.0-12.0)
--- NOTE | 2025-02-19 16:44 | RADIOLOGY REPORT ---
CHEST RADIOGRAPH Indication: SOB Technique: Single frontal view of the chest was obtained COMPARISON: DI CHEST,SINGLE VIEW on DOS: 09/27/23, DI CHEST,SINGLE VIEW on DOS: 07/21/23 FINDINGS: Lines and Tubes: Chest port satisfactory position. Median sternotomy. Lungs: Clear Pleura: No effusion. No pneumothorax. Cardiomediastinal contours: Cardiomegaly Bones: Unremarkable IMPRESSION: No acute disease.
[2025-02-19] MEDS: K and/or MAG REPLACEMENT MC SCH (20:00)
[2025-02-19] MEDS ORDERED: phenoBARBITAL 30mg tablet PO SCH ×2 (21:00→21:28)
[2025-02-19] MEDS: atorvastatin 20mg tablet PO SCH (21:29)
[2025-02-19] MEDS: carBAMazepine 100mg chewable tablet PO SCH (21:29)
[2025-02-19] MEDS: phenoBARBITAL 30mg tablet PO SCH (21:50)
[2025-02-19 22:05] VITALS: BP 120/66; PULSE 64; RESP 15; TEMP 98.3; O2SAT 99
[2025-02-20] VITALS (8 sets, daily range): BP systolic 91–130; BP diastolic 57–86; PULSE 61–91; RESP 14–18; TEMP 97.7–98.2; O2SAT 95–100
[2025-02-20 04:48] LABS: BASOPHILS % (AUTO) 1.7 % (0-1); EOSINOPHILS % (AUTO) 1.3 % (0-6); HEMATOCRIT 25.3 % (42.0-52.0); HEMOGLOBIN 8.8 g/dl (14.0-17.9); LYMPHOCYTES # (AUTO) 0.3 X10'3 (1.1-4.8); LYMPHOCYTES % (AUTO) 25.8 % (21-51); MEAN CORPUSCULAR HEMOGLOBIN 35.2 PG (27.0-31.0); MEAN CORPUSCULAR HGB CONC 34.9 g/dL (33.0-36.5); MEAN CORPUSCULAR VOLUME 100.7 FL (78-98); MEAN PLATELET VOLUME 7.4 FL (7.4-10.4); MONOCYTES # (AUTO) 0.2 X10'3 (0-0.9); MONOCYTES % (AUTO) 15.2 % (2-12); NEUTROPHILS # (AUTO) 0.6 X10'3 (1.8-7.7); PLATELET COUNT 95 X10'3 (140-440); RED BLOOD COUNT 2.51 X10'6 (4.70-6.10); RED CELL DISTRIBUTION WIDTH 17.1 % (11.5-14.5); WHITE BLOOD COUNT 1.2 X10'3 (4.5-11.0)
[2025-02-20 05:07] LABS: ALBUMIN 2.6 G/DL (3.4-5.0); ANION GAP 9 (8-16); BLOOD UREA NITROGEN 7 MG/DL (7-18); BUN/CREATININE RATIO 14.3 (10.0-20.0); CALCIUM 7.9 MG/DL (8.5-10.1); CHLORIDE 94 MMOL/L (99-107); CREATININE 0.49 MG/DL (0.60-1.10); GLUCOSE 122 MG/DL (70-104); MAGNESIUM 1.6 MG/DL (1.5-2.4); POTASSIUM 3.3 MMOL/L (3.5-5.1); SODIUM 129 MMOL/L (135-145); TOTAL CARBON DIOXIDE 26.2 MMOL/L (24-32); eCRCL 127 ML/MIN; eGFR > 90 ML/MIN
[2025-02-20] MEDS: aspirin 81mg tab.chew PO SCH (07:09)
[2025-02-20] MEDS: pantoprazole 40mg Tablet.DR PO SCH (07:09)
[2025-02-20] MEDS: lisinopril 20mg tablet PO SCH (07:10)
[2025-02-20] MEDS: HYDROcodone/acetaminophen 10/325mg tab PO PRN (07:21)
[2025-02-20] MEDS: potassium Cl 20 mEq SR tablet PO PRN (10:12)
[2025-02-20] MEDS ORDERED: magnesium hydroxide 30ml (MOM) UD suspension PO PRN (10:25)
--- NOTE | 2025-02-20 13:58 | PROGRESS NOTE- Residence ---
Progress Note - Resident Providers to CC Resident Creating Document: JENIFER OROSCO RES ~ Antibiotic Timeout Antibiotic Ordered?: No Subjective Patient seen and examined at bedside. Trying to stand by himself with support. He is to work with physical therapy today. Denies any new concerns or complaints. Objective Vital Signs Date Time Temp Pulse Resp B/P (MAP) Pulse Ox O2 Delivery O2 Flow Rate FiO2 02/20/25 08:03 91 14 96 Room Air* 0 21 02/20/25 06:00 97.9 91/57 (68) Result Diagram: 02/20/25 0433 02/20/25 0433 General: Awake and Alert, no acute distress. HEENT: Conjunctiva pink, Sclera clear, Mucus Membranes moist. Neck: Supple without masses and tenderness. Resp: Unlabored. Bilateral rhonchi Heart: Regular rhythm, normal S1 and S2, no rub, murmur or gallop. Abdomen: Soft and non tender no organomegaly. Normal bowel sounds x4 quadrant normoactive. No guarding or rigidity. Extremities: Left upper extremity internally rotated and flexed wrist.. Left lower extremity is externally rotated. Restricted range of motion in the left extremity. No edema or swelling. Diminished peripheral pulses. 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 Skin: Warm and Dry. Coagulation Studies Laboratory Tests Test 02/19/25 12:57 Prothrombin Time 11.1 SECONDS (9.0-12.0) INR International Normalized Ratio 1.1 INR Activated Partial Thromboplast Time 31 SECONDS (22-32) Coagulation Comments Assessment Assessment 69-year-old male with history of cerebral palsy, esophageal and liver cancer on chemotherapy, CAD status post CABG x5 2015, epilepsy, hypertension, presented to the ED after a mechanical fall. Plan Plan Mechanical fall Mildly displaced acute fracture of the left inferior pubic ramus Chronic lumbar degenerative disc disease and neural stenosis, no neurologic deficits noted at this time Tripped on water and fell at home Pelvis CT: Fracture of the inferior pubic ramus. Hip x-ray no acute fracture or dislocation ED physician had contacted orthopedics Dr. 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 Kiran's office, he is on carboplatin and Taxol for chemotherapy Recommended that since his ANC is 672 he can get one dose of Neupogen. 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 Santos recommended that he will have to follow up with him on outpatient basis for the PVD and findings noted on the CT. COPD breathing treatments p.r.n. Epilepsy continue home medications carbamazepine and phenobarbital History of cerebral palsy Extensive tobacco use, nicotine patch Med req done Code Status: Full code DVT prophylaxis: Aspirin Analgesia/sedation: [place]/morphine Line/tube: PIV GI prophylaxis: Protonix Nutrition: Regular diet Prognosis: Guarded Disposition: Continue medical management. Jenifer Orosco MD. IM Resident PGY-2 Date of Service: Feb 20, 2025 Billing Provider: RENÉ CAPPS MD Common Visit Codes: [id number] INP/OBS CARE(HIGH) JENIFER OROSCO, CHAVO Feb 20, 2025 13:58 RENÉ CAPPS MD Feb 20, 2025 21:23
[2025-02-20] MEDS ORDERED: filgrastim 300mcg inj SQ ONE (14:00)
[2025-02-20] MEDS: TBO-filgrastim 300 MCG/0.5 ML inj. SQ ONE (17:42)
[2025-02-21 05:07] LABS: BASOPHILS % (AUTO) 1.3 % (0-1); EOSINOPHILS % (AUTO) 1.1 % (0-6); HEMATOCRIT 24.7 % (42.0-52.0); HEMOGLOBIN 8.8 g/dl (14.0-17.9); LYMPHOCYTES # (AUTO) 0.3 X10'3 (1.1-4.8); LYMPHOCYTES % (AUTO) 14.3 % (21-51); MEAN CORPUSCULAR HEMOGLOBIN 35.3 PG (27.0-31.0); MEAN CORPUSCULAR HGB CONC 35.5 g/dL (33.0-36.5); MEAN CORPUSCULAR VOLUME 99.6 FL (78-98); MEAN PLATELET VOLUME 7.5 FL (7.4-10.4); MONOCYTES # (AUTO) 0.2 X10'3 (0-0.9); MONOCYTES % (AUTO) 11.3 % (2-12); NEUTROPHILS # (AUTO) 1.5 X10'3 (1.8-7.7); PLATELET COUNT 94 X10'3 (140-440); RED BLOOD COUNT 2.48 X10'6 (4.70-6.10); RED CELL DISTRIBUTION WIDTH 17.2 % (11.5-14.5); WHITE BLOOD COUNT 2.1 X10'3 (4.5-11.0)
[2025-02-21 05:24] LABS: ALBUMIN 2.7 G/DL (3.4-5.0); ANION GAP 7 (8-16); BLOOD UREA NITROGEN 4 MG/DL (7-18); CALCIUM 8.3 MG/DL (8.5-10.1); CHLORIDE 94 MMOL/L (99-107); GLUCOSE 112 MG/DL (70-104); MAGNESIUM 1.5 MG/DL (1.5-2.4); PHOSPHORUS 3.3 MG/DL (2.3-4.5); POTASSIUM 3.8 MMOL/L (3.5-5.1); SODIUM 126 MMOL/L (135-145); TOTAL CARBON DIOXIDE 24.8 MMOL/L (24-32); eCRCL 156 ML/MIN; eGFR > 90 ML/MIN
[2025-02-21 05:45] LABS: BILIRUBIN,URINE NEGATIVE (Neg); CLARITY,URINE CLEAR (Clear); COLOR,URINE YELLOW (Yellow); GLUCOSE, URINE NEGATIVE (Neg); KETONES,URINE NEGATIVE (Neg); LEUKOCYTE ESTERASE ,URINE NEGATIVE (Neg); NITRITES, URINE NEGATIVE (Neg); OCCULT BLOOD,URINE NEGATIVE (Neg); PH,URINE 6.5 (4.8-8.0); PROTEIN,URINE NEGATIVE (Neg); UROBILINOGEN,URINE 0.2 E.U/dL (0.2-1.0)
[2025-02-21 05:52] LABS: UA COLLECTION TYPE NON-SPECIFIED
[2025-02-21 06:00] VITALS: BP 127/67; PULSE 68; RESP 16; TEMP 98.5; O2SAT 97
[2025-02-21] MEDS ORDERED: IPRA3AMP9 IH (07:59)
[2025-02-21] MEDS ORDERED: NICO-687 TD (07:59)
[2025-02-21] MEDS ORDERED: ALBU2.5V7 NEB (07:59)
[2025-02-21 10:00] VITALS: BP 113/63; PULSE 65; RESP 18; TEMP 98.2; O2SAT 97
[2025-02-21 10:22] VITALS: PULSE 68; RESP 16; O2SAT 95
[2025-02-21] MEDS: HYDROcodone/acetaminophen 5mg/325mg tablet PO PRN (13:33)
--- NOTE | 2025-02-21 17:55 | DISCHARGE SUMMARY-Residence ---
Discharge Summary Providers to CC Resident Creating Document: SANTANA OROSCO RES ~ Discharge Summary Admission Diagnosis: PELVIS FRACTURE Hospital Course DATE OF ADMISSION: 02/19/2025 DATE OF DISCHARGE: 02/21/2025 Hospital course same as mentioned discharge summary. Discharge Diagnosis\Comment: Mechanical fall Mildly displaced acute fracture of the left inferior pubic ramus, possible underlying osteoporosis Chronic lumbar degenerative disc disease and neural stenosis, no neurologic deficits noted at this time Chronic hyponatremia-improving Adenocarcinoma of the esophagus and chemotherapy carboplatin and Taxol Pancytopenia likely secondary to chemotherapy Anemia Peripheral vascular disease Extensive atherosclerotic vascular disease with high-grade stenosis of the right common femoral artery just above the bifurcation COPD breathing treatments p.r.n. Epilepsy continue home medications carbamazepine and phenobarbital History of cerebral palsy Extensive tobacco use, nicotine patch Operations\Procedures: None Consultants: Dr. Harris Complications: None Condition on DC: Stable New Medications: Ipratropium/Albuterol Sulfate (IPRAT-ALBUT 0.5-3(2.5) MG/3 ML nebule) 0.5 Mg-3 Mg (2.5 Mg Base)/3 Ml Ampul.neb 3 ML IH Q4H for 30 Days, #1 INHALER Albuterol Sulfate (Albuterol Sulfate) 2.5 Mg/3 Ml Vial.neb 2.5 MG NEB Q2H PRN for SOB or wheezing, #1 INH Nicotine 21 MG Patch* (Habitrol 21 MG Patch*) 1 Each Patch.td24 1 PATCH TD DAILY, #20 PATCH Continued Medications: Aspirin (Aspirin) 81 Mg Tab.chew 1 TAB PO DAILY for 30 Days, #30 TAB Atorvastatin Calcium* (Lipitor*) 80 Mg Tablet 1 TABLET PO HS, TABLET Carbamazepine* (Tegretol*) 100 Mg Tab.chew 200 MG PO BID Ferrous Sulfate (Iron) 325 Mg (65 Mg Iron) Tablet 1 TAB PO Q12H for 30 Days, #60 TAB 0 Refills Lisinopril (Lisinopril) 20 Mg Tablet 1 TAB PO DAILY for 30 Days, #30 TAB Mecobalamin (B12 Active) 1,000 Mcg Tab.chew 1 TAB PO DAILY for 30 Days, #30 TAB 0 Refills Omeprazole (Prilosec) 40 Mg Capsule 1 CAP PO DAILY for 30 Days, #30 CAP Phenobarbital (Phenobarbital) 100 Mg Tablet 1 TAB PO HS Phenobarbital (Phenobarbital) 32.4 Mg Tablet 64.8 MG PO HS Discharge Summary: As per HPI: 69-year-old male with history of cerebral palsy, esophageal and live r cancer on chemotherapy, CAD status post CABG x5 2015, epilepsy, hypertension, presented to the ED after a mechanical fall. Yesterday he slipped on water and fell on his left side and hurt his hip. Did not lose consciousness or hit his head to the floor. Was complaining of severe pain earlier this morning 06/07, currently pain-free. Denies significant chest pains, diaphoresis, fevers/chills, nasal congestion, expectoration, palpitations. Smokes around a pack of cigarettes a day, extensive smoking history. Drinks alcohol once a week. No recreational drugs. Normally is ambulatory, was having difficulty walking since the fall yesterday. Lives with his . Discussed advanced care directives and wishes to be a full code. Hospital course: On further evaluation pelvic CT was positive for fracture of the inferior pubic ramus. Hip x-ray showed no acute fracture or dislocation. ED had contacted Dr. Harris orthopedics. Since it has a pelvic fracture would likely need medical management. He was hyponatremic, which is likely chronic, started him on IV fluids and was improving. He was severely pancytopenic and neutropenic with a ANC 672 secondary to chemotherapy carboplatin and Taxol for adenocarcinoma of the esophagus. He got one dose of Neupogen. CT ulcers for extensive peripheral vascular disease consulted Dr. Santos is fur trimmer recommended outpatient management. He was given breathing treatments p.r.n. for underlying COPD. He worked with Physical therapy and was cleared for discharge. His hospital course is uncomplicated he is hemodynamically stable on the day of discharge and his physical exam is as follows: General: Awake and Alert, no acute distress. HEENT: Conjunctiva pink, Sclera clear, Mucus Membranes moist. Neck: Supple without masses and tenderness. Resp: Unlabored. Bilateral rhonchi Heart: Regular rhythm, normal S1 and S2, no rub, murmur or gallop. Abdomen: Soft and non tender no organomegaly. Normal bowel sounds x4 quadrant normoactive. No guarding or rigidity. Extremities: Left upper extremity internally rotated and flexed wrist.. Left lower extremity is externally rotated. Restricted range of motion in the left extremity. No edema or swelling. Diminished peripheral pulses. 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 Skin: Warm and Dry. Discharge medications can be found above. Patient is being discharged with the following advice: Follow up with DR Kiran within a week, your blood counts have been low likely secondary to the chemotherapy reppeat CBC in a week. Laboratory Tests Test 02/19/25 20:03 02/20/25 04:33 02/21/25 04:34 02/21/25 05:10 Sodium Level 125 MMOL/L 129 MMOL/L 126 MMOL/L White Blood Count 1.2 X10'3 2.1 X10'3 Red Blood Count 2.51 X10'6 2.48 X10'6 Hemoglobin 8.8 g/dl 8.8 g/dl Hematocrit 25.3 % 24.7 % Mean Corpuscular Volume 100.7 FL 99.6 FL Mean Corpuscular Hemoglobin 35.2 PG 35.3 PG Mean Corpuscular Hemoglobin Concent 34.9 g/dL 35.5 g/dL Red Cell Distribution Width 17.1 % 17.2 % Platelet Count 95 X10'3 94 X10'3 Mean Platelet Volume 7.4 FL 7.5 FL Neutrophils (%) (Auto) 56.0 % 72.0 % Lymphocytes (%) (Auto) 25.8 % 14.3 % Monocytes (%) (Auto) 15.2 % 11.3 % Eosinophils (%) (Auto) 1.3 % 1.1 % Basophils (%) (Auto) 1.7 % 1.3 % Neutrophils # (Auto) 0.6 X10'3 1.5 X10'3 Lymphocytes # (Auto) 0.3 X10'3 0.3 X10'3 Monocytes # (Auto) 0.2 X10'3 0.2 X10'3 Eosinophils # (Auto) 0.0 X10'3 0.0 X10'3 Basophils # (Auto) 0.0 X10'3 0.0 X10'3 CBC Comment Potassium Level 3.3 MMOL/L 3.8 MMOL/L Chloride Level 94 MMOL/L 94 MMOL/L Carbon Dioxide Level 26.2 MMOL/L 24.8 MMOL/L Anion Gap 9 7 Blood Urea Nitrogen 7 MG/DL 4 MG/DL Creatinine 0.49 MG/DL 0.40 MG/DL Estimated GFR/1.73 m2 > 90 ML/MIN > 90 ML/MIN BUN/Creatinine Ratio 14.3 10.0 Glucose Level 122 MG/DL 112 MG/DL Calcium Level 7.9 MG/DL 8.3 MG/DL Phosphorus Level 4.0 MG/DL 3.3 MG/DL Magnesium Level 1.6 MG/DL 1.5 MG/DL Albumin 2.6 G/DL 2.7 G/DL Chemistry Comments Urine Specimen Description Non-specified Urine Color Yellow Urine Clarity Clear Urine pH 6.5 Urine Specific Bromide 1.010 Urine Protein Negative mg/dl Urine Glucose (UA) Negative mg/dl Urine Ketones Negative mg/dl Urine Occult Blood Negative Urine Nitrite Negative Urine Bilirubin Negative Urine Urobilinogen 0.2 E.U/dL Urine Leukocyte Esterase Negative Urine Culture Indicated Not ind Volume Urine Centrifuged 10 ml Urine Comment *Problems/Diagnosis: (1) Pubic ramus fracture Status: Acute Total Time Spent on D/C: > 30 Minutes Date of Service: Feb 21, 2025 Billing Provider: RENÉ CAPPS MD Common Visit Codes: 48420-[id number] DISCH DAY >30min SANTANA OROSCO, RES Feb 21, 2025 17:53 RENÉ CAPPS MD Feb 21, 2025 21:03
[2025-02-21] MEDS ORDERED: HYDR-3965 PO (21:01)
== END 2025-02-21 13:40 | disposition home or self-care (01) | DRG 542 ==
LOC: ER 10:55 → ED HOLD 15:20 → ORTHO 4S 22:00
PROVIDERS: ADMIT Internal Medicine; ATTEND Internal Medicine
DX: M80.8AXA Other osteoporosis with current pathological fracture, other site, initial encounter for fracture (principal); D61.810 Antineoplastic chemotherapy induced pancytopenia; C15.9 Malignant neoplasm of esophagus, unspecified; E87.1 Hypo-osmolality and hyponatremia; C78.7 Secondary malignant neoplasm of liver and intrahepatic bile duct; M51.379 Other intervertebral disc degeneration, lumbosacral region without mention of lumbar back pain or lower extremity pain; M51.369 Other intervertebral disc degeneration, lumbar region without mention of lumbar back pain or lower extremity pain; I25.10 Atherosclerotic heart disease of native coronary artery without angina pectoris; I10 Essential (primary) hypertension; E78.00 Pure hypercholesterolemia, unspecified; Z79.82 Long term (current) use of aspirin; I73.9 Peripheral vascular disease, unspecified; Z79.899 Other long term (current) drug therapy; Z95.1 Presence of aortocoronary bypass graft; Z92.21 Personal history of antineoplastic chemotherapy; T45.1X5A Adverse effect of antineoplastic and immunosuppressive drugs, initial encounter
CPT/HCPCS: 36415; 71045; 72131; 72192; 73502; 80048; 80156; 81003; 83735; 84100; 84295; 84484; 85007; 85025; 85610; 85730; 87081; 93005; 94640; 94760; 97116; 97161; 97530; 99285; G0378; J1442; J7030

== ENCOUNTER 2025-06-03 20:40 | Emergency (ER) | payer BC, MEDICAID ==
[~2025-06-03] VITALS: Ht 167.6 cm; Wt 75.0 kg
[~2025-06-03 20:40] MED LIST changes: +ALBU2.5V7 NEB; -CLOP75TA15 PO; +FERR-119 PO; +IPRA3AMP9 IH; +LISI20TA28 PO; +MECO10005 PO; +NICO-687 TD; +OMEP40CA21 PO; +PHEN32.46 PO
--- NOTE | 2025-06-03 20:48 | ELECTROCARDIOGRAPH REPORT ---
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
--- NOTE | 2025-06-03 21:32 | RADIOLOGY REPORT ---
CHEST RADIOGRAPH Indication: CP Technique: 1 view Comparison: DI CHEST,SINGLE VIEW on DOS: 02/19/25, DI CHEST,SINGLE VIEW on DOS: 09/27/23, DI CHEST,SINGLE VIEW on DOS: 07/21/23 FINDINGS: Lines and Tubes: Unchanged right chest port. Lungs/Pleura: No focal consolidation, pleural effusion or pneumothorax. Similar bilateral infrahilar interstitial opacities. Cardiomediastinum: Heart size upper normal limits. Prior CABG. Central pulmonary vascular prominence. Other: No acute osseous abnormality. Midline sternotomy wires. IMPRESSION: 1. No acute cardiopulmonary abnormality or significant change from prior exam. 2. Prior CABG with evidence of mild heart failure.
[2025-06-03] MEDS: morphine 4 MG/ML inj SYRINge IV ONE (21:34)
[2025-06-03 21:41] LABS: CREATININE 0.33 MG/DL (0.60-1.10); PRO BRAIN NATRIURETIC PEPTIDE 211 PG/ML (0-125); TOTAL CARBON DIOXIDE 25.7 MMOL/L (24-32); eCRCL 193 ML/MIN; eGFR > 90 ML/MIN
[2025-06-03 21:50] LABS: MEAN PLATELET VOLUME 7.6 FL (7.4-10.4); RED CELL DISTRIBUTION WIDTH 24.6 % (11.5-14.5)
--- NOTE | 2025-06-03 22:08 | RADIOLOGY REPORT ---
CLINICAL HISTORY: headache TECHNIQUE: Helical scanning was performed of the head from the skull base to the vertex. Multiplanar reconstructions were performed. This exam was performed according to our departmental dose optimization program. Up-to-date CT equipment and radiation dose reduction techniques are utilized as appropriate. CTDI 61.4 DLP 1248 COMPARISON: CT CTA NECK/HEAD on DOS: 09/27/23, CT CT HEAD on DOS: 09/27/23, CT CT CERVICAL SPINE on DOS: 09/27/23, CT CT HEAD on DOS: 07/21/23 FINDINGS: There is no evidence for acute intracranial hemorrhage or extra-axial fluid collection. There is no hydrocephalus or midline shift. There is no effacement of the cerebral sulci and basal subarachnoid cisterns. There is extensive cerebellar edema bilaterally. The 4th ventricle is effaced. There are similar appearing postoperative changes of right parietal craniectomy with subjacent large area encephalomalacia and ex vacuo dilatation of the occipital 4 of the right lateral ventricle. The imaged paranasal sinuses are clear. IMPRESSION: Extensive bilateral cerebellar edema with effacement of the 4th ventricle. Differential includes infarct, tumor, infection, and inflammation. Further workup recommended with brain MRI with and without IV contrast. Serial head CT suggested to evaluate for development of hydrocephalus. Stable postoperative changes of the right parietal lobe. FINDINGS AND INTERPRETATION DISCUSSED WITH DR HUTCHINSON AT DATE AND TIME 06/03/2025 10:05 PM
[2025-06-03 22:53] LABS: BANDS% (MANUAL) 9.0 % (0-10); EOSINOPHILS % (MANUAL) 1.0 % (0-6); LYMPHOCYTES % (MANUAL) 14.0 % (21-51); MONOCYTES % (MANUAL) 14.0 % (2-12); NEUTROPHILS % (MANUAL) 62.0 % (42-75); PLATELET ESTIMATE NORMAL
--- NOTE | 2025-06-03 22:57 | [facility] CONSULT REPORT ---
[facility] Procedure Note [facility] Procedure Note Consult [facility] Note # Demographics Consult Type: General Neurology Patient Location: Emergency Room First Name: valente Last Name: arely Date of : 1955 Age: 70 Gender: Male Facility: [facility] Time of Initial Page (): 06/03/2025 22:43 First Contact with Site (): 06/03/2025 22:43 # HPI History: 70yom who p/w N/V, generalized weakness. Reportedly, he has had been having increasing headache for the past 2 days, AMS. # Exam Mental Status: - follows commands - sleepy Language: - normal speech - no aphasia dysarthric slow speech Motor: Generalized weakness # Data Head CT: - preliminary read extensive bilateral cerebellar edema with effacement of 4th # Plan Imaging: (urgency: STAT): - CT Angiogram Head and CT Angiogram Neck AND call back with results if abnormal Imaging: (urgency: routine): - MRI Brain with AND without contrast Other: - If patient has any neurological deterioration please call me back immediately - consult neurosurgery Additional Recommendations: -3% HTS @ 30 ml/hr to keep Serum Na 140-150 range -Serial CT head for interval change - Transfer to [facility] with NSGY for stat NSGY consult # Logistics Attestation of consult completion: The patient is located at: [facility]. Facility staff participated in the visit. I performed this telemedicine visit from my offsite office utilizing interactive 2 way audio and visual telecommunication technology at the request of the onsite emergency room provider. Total time spent in telemedicine encounter: I spent 27 minutes reviewing clinical data and/or imaging, obtaining history, examining the patient, communicating with the onsite care team, and in preparation of this report. # Demographics First Name: valente Last Name: arely Facility: [facility] Neuro Consult Order placed for: Yes ZACKERY MELVIN MD Jun 03, 2025 22:57
[2025-06-03] MEDS ORDERED: SODIUM CHLORIDE IV SCH (23:05)
[2025-06-03] MEDS ORDERED: STERILE IV SCH (23:05)
[2025-06-03] MEDS ORDERED: WATER FOR INJECTION IV SCH (23:05)
[2025-06-03] MEDS ORDERED: mannitol 12.5gm/50mL VIAL IV ONE (23:20)
[2025-06-04] MEDS: sodium chloride 3% IV.soln 500 ML IV ONE (00:16)
[2025-06-04] MEDS: SODIUM CHLORIDE IV SCH (00:17)
[2025-06-04] MEDS: WATER FOR INJECTION IV SCH (00:17)
[2025-06-04] MEDS: STERILE IV SCH (00:17)
[2025-06-04] MEDS ORDERED: mannitol 12.5gm/50mL VIAL IV ONE (00:35)
--- NOTE | 2025-06-04 01:11 | Physician Documentation ---
History of Present Illness ~ Chief Complaint: Weakness Stated Complaint: N/V Time Seen by MD: 21:18 OK to notify your PCP?: Yes [facility] Mode of Arrival: EMS HPI Patient was brought to the hospital by EMS at the request of his . She thought his speech was off. She is not available when I am taking the HPI. Patient states that he is here because of a headache that he has had for about three days. He has chronic left-sided hemiparesis. Medication Reconciliation Allergies: Coded Allergies: No Known Allergies (Unverified , 02/19/25) Scheduled Aspirin (Aspirin), 1 TAB PO DAILY, (Reported) Atorvastatin Calcium* (Lipitor*), 1 TABLET PO HS, (Reported) Carbamazepine* (Tegretol*), 200 MG PO BID, (Reported) Ferrous Sulfate (Iron), 1 TAB PO Q12H, (Reported) Ipratropium/Albuterol Sulfate (IPRAT-ALBUT 0.5-3(2.5) MG/3 ML nebule), 3 ML IH Q4H Lisinopril (Lisinopril), 1 TAB PO DAILY, (Reported) Mecobalamin (B12 Active), 1 TAB PO DAILY, (Reported) Nicotine 21 MG Patch* (Habitrol 21 MG Patch*), 1 PATCH TD DAILY Omeprazole (Prilosec), 1 CAP PO DAILY, (Reported) Phenobarbital (Phenobarbital), 1 TAB PO HS, (Reported) Phenobarbital (Phenobarbital), 64.8 MG PO HS, (Reported) Scheduled PRN Albuterol Sulfate (Albuterol Sulfate), 2.5 MG NEB Q2H PRN for SOB or wheezing Past Medical History Past Medical History: *SLUBBER HAND*, Seizures, High Cholesterol, Hypertension Past Surgical History: coronary bypass surgery, orthopedic surgeries Other Past Surgical History: stent in neck Alcohol Use: None Drug Use: none Lives with: Spouse Lives In: Home Occupation: retired Physical Exam Vital Signs: Temperature: 97.9, Source: Axillary, Heart Rate: 54, Respiratory Rate: 15, BP: 136/67, Pulse Oximetry: 99, Weight: 75.000 Oxygen Flow Rate: 5.0 Physical Exam General: Awake and Alert, no acute distress. HEENT: Conjunctiva pink, Sclera clear, Mucus Membranes moist. Neck: Supple without masses and tenderness. Resp: Unlabored. Lungs clear to auscultation bilaterally. Heart: Regular Rate and rhythm, normal S1 and S2 without murmur, rub or gallop. Abdomen: Soft and non tender no organomegaly Extremities: No cyanosis,clubbing or edema. Skin: Warm and Dry. Neuro: GCS 15; left-sided hemiparesis that is chronic. Normal strength in the right side. No facial asymmetry. He is able to his speak it takes him some time to get his words out his speech is not slurred. Procedures Procedures Central venous catheter insertion indication is hypertonic saline infusion. Prepped his right side of his neck with a chlorhexidine in the usual sterile manner. I used ultrasound and visualize the right IJ patient appears to be volume depleted as it keeps collapsing. I attempted 3 times and in his able to cannulate the vein. So a right femoral line was placed. I located the vein with the ultrasound machine in the night prepped the area with chlorhexidine and draped in usual sterile manner. I 1st attempt to cannulate the femoral vein. Catheter was placed using the Seldinger technique. All ports withdrew and flushed equally. It was sutured in place and dressed by the nursing staff. This was an eight [place] 15 cm quadruple lumen catheter. Progress Results/Orders Results/Orders Orders - BASILIA HUTCHINSON MD Chest,Single View (06/03/25 21:20) Monitor (06/03/25 20:43) Saline Lock (06/03/25:43) Oxygen (06/03/25 20:43) Hs Troponin I W Calculations (06/03/25 23:43) Culture Blood (06/03/25 20:43) Urinalysis, Cult If Indicated (06/03/25 20:43) Straight Cath For Urine Sample (06/03/25 20:43) Ct Head (06/03/25 21:40) [place] Prov.Neuro Consult (06/03/25 22:41) Water For Injection... W/Sodium Chloride (06/03/25 23:40) Potassium Cl Inj (Potassium Cl Inj) (06/04/25 00:55) Completed Orders - BASILIA HUTCHINSON MD Chest,Single View (06/03/25 21:20) Cbc/Diff (06/03/25 20:43) BMP (06/03/25 20:43) PBNP (06/03/25 20:43) Electrocardiogram (06/03/25 20:43) Hs Troponin I W Calculations (06/03/25 20:43) Hs Troponin I W Calculations (06/03/25 22:43) Procalcitonin (06/03/25 20:43) Lacticsepsis (06/03/25 20:43) Ct Head (06/03/25 21:40) Morphine 2mg/Ml Inj. (Morphine Inj.) (06/03/25 21:20) Morphine 4mg/Ml Inj. (Morphine Inj.) (06/03/25 21:20) Lactic,2hr (06/03/25 22:40) Man Diff (06/03/25 20:58) Water For Injection... W/Sodium Chloride (06/03/25 23:05) Mannitol 12.5gm/50ml Vial (Mannitol 12.5 (06/03/25 23:20) Sodium Chloride 3% Iv.Soln (Sodium Chlor (06/03/25 23:52) Mannitol 12.5gm/50ml Vial (Mannitol 12.5 (06/04/25 00:35) Medications Received in ER Medications (Trade) Dose Ordered Sig/Rosi Route PRN Reason Start Time Stop Time Status Last Admin Dose Admin (morphine inj.) 2 mg ONCE ONCE IV 06/03/25 21:20 06/03/25 21:21 DC 06/03/25 21:34 2 MG Sodium Chloride 256 meq/Sterile Water 500 ml @ 30 mls/hr [id number] IV 06/03/25 23:40 06/04/25 00:17 30 MLS/HR Vital Signs 06/03/25 06/03/25 06/03/25 06/03/25 20:42 21:15 21:34 22:27 Temp 97.9 Pulse 55 52 54 Resp 17 15 16 15 B/P (MAP) 126/83 152/74 (100) 136/67 (90) Pulse Ox 97 90 99 O2 Flow Rate 3.0 4.0 5.0 06/03/25 23:29 Resp 15 B/P (MAP) Laboratory Tests Test 06/03/25 20:58 06/03/25 22:54 White Blood Count 2.4 L Red Blood Count 2.98 L Hemoglobin 9.7 L Hematocrit 28.9 L Mean Corpuscular Volume 96.9 Mean Corpuscular Hemoglobin 32.6 H Mean Corpuscular Hemoglobin Concent 33.6 Red Cell Distribution Width 24.6 H Platelet Count 197 Mean Platelet Volume 7.6 Neutrophils (%) (Auto) 60.7 Lymphocytes (%) (Auto) 19.2 L Monocytes (%) (Auto) 17.0 H Eosinophils (%) (Auto) 1.1 Basophils (%) (Auto) 2.0 H Neutrophils # (Auto) 1.5 L Lymphocytes # (Auto) 0.5 L Monocytes # (Auto) 0.4 Eosinophils # (Auto) 0.0 Basophils # (Auto) 0.0 CBC Comment Differential Total Cells Counted 100 Neutrophils % (Manual) 62.0 Band Neutrophils % 9.0 Lymphocytes % (Manual) 14.0 L Monocytes % (Manual) 14.0 H Eosinophils % (Manual) 1.0 Platelet Estimate Normal Red Blood Cell Morphology Perf Basophilic Stippling Anisocytosis 3+ Macrocytosis 1+ Sodium Level 126 L Potassium Level 2.7 *L Chloride Level 89 L Carbon Dioxide Level 25.7 Anion Gap 11 Blood Urea Nitrogen 5 L Creatinine 0.33 L Estimated GFR/1.73 m2 > 90 BUN/Creatinine Ratio 15.2 Glucose Level 114 H Lactic Acid Level 3.3 H 3.2 H Calcium Level 7.9 L Troponin I High Sensitivity 7 7 Pro-B-Type Natriuretic Peptide 211 H Albumin 3.0 L Procalcitonin < 0.05 Chemistry Comments Troponin I High Sens Percent Delta 0 Troponin I Hi Sens Absolute Change 0 Microbiology Date/Time Source Procedure Growth Status 06/03/25 21:26 Blood Arm Right Blood Culture - Preliminary NEGATIVE (LESS THAN 24 HOURS) Resulted Medical Decision Making Findings Patient is here for a headache that he has had for a few days his noted that his speech was off. CT scan of his brain showed diffuse cerebral edema. At this point his arrived and said that he had a history of esophageal cancer so this cerebral edema could be caused by a metastasis. [facility] consult was obtained. She recommended hypertonic saline at 30 cc an hour and mannitol 50 g IV. His potassium was 2.7. He was given 40 mEq of potassium IV. Magnesium level was ordered. Patient was transferred to [facility] for neurosurgical evaluation. He was transferred ER to ER hemodynamically stable and comfortable Departure Disposition: 02 SHORT TERM HOSPITAL Impression: Primary Impression: Cerebral edema Condition: Stable Referrals: NO PRIMARY CARE PROVIDER (PCP) Education Educated: Patient Educated regarding: diagnosis, treatment, prognosis, need for follow up Critical Care Note Critical Care Note This patient had a high probability of sudden, clinically significant deterioration, which required the highest level of physician preparedness to intervene urgently. The patient required and I delivered critical care from time of arrival until disposition. Critical care time was separate from procedural such as intubation or central line placement or cardioversion. Critical care included initial assessment of the seriously ill patient, initiation of diagnostic studies and treatment, management of life-threatening and/or end organ supporting interventions that required frequent physician asses sment, and phone consultation with other providers as outlined in the progress notes. Spent with family or surrogates is included only if the patient was not capable of providing the necessary information or participating in medical decision-making. Total critical care time: 70 minutes Signature Scribe Signature: no scribe Attestation: no [email or web address] BASILIA HUTCHINSON MD Jun 04, 2025 01:11
[2025-06-04] MEDS ORDERED: potassium Cl 40MEQ/270ML bag 270 ML IV ONE (01:15)
[2025-06-04] MEDS: Potassium Cl inj 40 MEQ in normal saline 250ml IV soln 250 ML IV ONE (01:27)
[2025-06-04] MEDS ORDERED: magnesium sulf-water 2g/50mL 50 ML IV ONE (02:00)
[2025-06-04 02:37] VITALS: BP 130/55; PULSE 51; RESP 14; TEMP 97.9; O2SAT 95
== END 2025-06-04 02:49 | disposition short-term general hospital (02) ==
LOC: ER 20:41
DX: G93.6 Cerebral edema (principal); E78.00 Pure hypercholesterolemia, unspecified; I10 Essential (primary) hypertension; Z95.1 Presence of aortocoronary bypass graft; Z79.82 Long term (current) use of aspirin; Z79.899 Other long term (current) drug therapy
CPT/HCPCS: 36415; 36556; 70450; 71045; 80048; 83605; 83735; 83880; 84145; 84484; 85007; 85025; 87040; 87077; 87186; 93005; 96361; 96374; 99291; J2270; J3480; J3490; J7050; A6590; C1751